=== PATIENT | female | born 1995 | race Caucasian/White ===

== ENCOUNTER 2022-01-07 19:27 | Emergency (ER) | payer OTHER ==
[2022-01-07 20:13] LABS: Bilirubin Neg (Negative); Blood, Urine Negative (Negative); Clarity Clear (Clear); Glucose, Urine (Dipstick) Normal (Negative); Ketone, Urine Negative (Negative); Leukocyte Negative (Negative); Nitrite Negative (Negative); Protein, Urine (Dipstick) Negative (Neg-Trace); Specific Gravity, Urine 1.015 (1.002-1.036); Urobilinogen Normal mg/dL (Less than 2); pH, Urine 6.5 (5.0-9.0)
== END 2022-01-07 21:46 | disposition home or self-care (01) ==
LOC: CSHERS 19:27
DX: O99.891 Other specified diseases and conditions complicating pregnancy (principal); R10.30 Lower abdominal pain, unspecified; O99.282 Endocrine, nutritional and metabolic diseases complicating pregnancy, second trimester; E03.9 Hypothyroidism, unspecified; Z3A.16 16 weeks gestation of pregnancy
CPT/HCPCS: 76856; 81003

== ENCOUNTER 2022-01-25 12:38 | Emergency (ER) | payer OTHER ==
[2022-01-25 13:37] LABS: Bilirubin Neg (Negative); Blood, Urine Negative (Negative); Clarity Clear (Clear); Glucose, Urine (Dipstick) Normal (Negative); Ketone, Urine Negative (Negative); Leukocyte Negative (Negative); Nitrite Negative (Negative); Protein, Urine (Dipstick) Negative (Neg-Trace); Urobilinogen Normal mg/dL (Less than 2); pH, Urine 6.5 (5.0-9.0)
[2022-01-25 14:45] LABS: #Eosinphils 0.2 10x3/uL (0.0-0.5); #Monocytes 0.6 10x3/uL (0.0-1.1); #Neutrophils 7.1 10x3/uL (1.5-8.4); %Basophils 0.4 % (0.0-2.0); %Eosinophils 1.7 % (0.0-6.0); %Lymphocytes 24.7 % (18.0-47.0); %Monocytes 5.3 % (0.0-10.0); %Neutrophils 67.4 % (40.0-75.0); Hemoglobin 12.4 g/dL (12.0-15.5); Mean Corpuscular HGB CONC 35.8 g/dL (32.0-36.0); Mean Corpuscular Hemoglobin 32.6 pg (27.0-33.0); Mean Corpuscular Volume 91.1 fl (81.6-98.3); Mean Platelet Volume 10.9 fl (7.4-10.4); Platelet Count 273 10x3/uL (150-450); RBC Distribution Width 13.2 % (11.5-14.5); White Blood Cell (WBC) Count 10.5 10x3/uL (3.5-10.5)
[2022-01-25 14:59] LABS: ALT (SGPT) 11 U/L (8-55); AST (SGOT) 13 U/L (5-34); Albumin 3.6 g/dL (3.5-5.0); Alkaline Phosphatase 52 U/L (40-110); Anion Gap 14 mmol/L (10-20); BUN (Urea Nitrogen) 5 mg/dL (7.0-18.7); Bilirubin, Total 0.3 mg/dL (0.2-1.2); Calc. Creatinine Clearance 0 mL/min (70-130); Calcium 9.1 mg/dL (7.8-10.44); Carbon Dioxide 20 mmol/L (22-29); Chloride 106 mmol/L (98-107); Globulin 3.3 g/dL (2.4-3.5); Glucose 83 mg/dL (70-105); Lipase 15 U/L (8-78); Protein, Total 6.9 g/dL (6.0-8.3); Sodium 136 mmol/L (136-145)
== END 2022-01-25 16:06 | disposition home or self-care (01) ==
LOC: CSHERS 12:38
DX: O16.2 Unspecified maternal hypertension, second trimester (principal); O99.282 Endocrine, nutritional and metabolic diseases complicating pregnancy, second trimester; E03.9 Hypothyroidism, unspecified; O99.512 Diseases of the respiratory system complicating pregnancy, second trimester; J45.909 Unspecified asthma, uncomplicated; Z79.899 Other long term (current) drug therapy; Z3A.19 19 weeks gestation of pregnancy
CPT/HCPCS: 80053; 81003; 83690; 85025; 93005

== ENCOUNTER 2022-04-08 12:44 | Emergency (ER) | payer OTHER ==
[2022-04-08] MEDS ORDERED: Ondansetron PF 4 MG/2 ML Vial ONE (13:37)
[2022-04-08] MEDS ORDERED: Acetaminophen 500 MG TAB ONE (13:38)
[2022-04-08 14:10] LABS: Bilirubin 1+ (Negative); Blood, Urine Negative (Negative); Clarity Clear (Clear); Glucose, Urine (Dipstick) Normal (Negative); Ketone, Urine 5 mg/dL (Negative); Leukocyte 25 (Negative); Nitrite Negative (Negative); Protein, Urine (Dipstick) 30 mg/dl (Neg-Trace)
[2022-04-08 14:14] LABS: Hemoglobin 12.2 g/dL (12.0-15.5); Mean Corpuscular Hemoglobin 31.5 pg (27.0-33.0); Mean Corpuscular Volume 88.9 fl (81.6-98.3); Red Blood Cell (RBC) Count 3.87 10x6/uL (3.90-5.03); White Blood Cell (WBC) Count 9.1 10x3/uL (3.5-10.5)
[2022-04-08 14:15] LABS: #Basophils 0.1 10x3/uL (0.0-0.2); #Monocytes 0.5 10x3/uL (0.0-1.1); #Neutrophils 7.7 10x3/uL (1.5-8.4); %Basophils 0.7 % (0.0-2.0); %Eosinophils 0.2 % (0.0-6.0); %Lymphocytes 8.4 % (18.0-47.0); %Monocytes 4.9 % (0.0-10.0); %Neutrophils 84.2 % (40.0-75.0); Mean Corpuscular HGB CONC 35.5 g/dL (32.0-36.0); Mean Platelet Volume 10.3 fl (7.4-10.4); Platelet Count 288 10x3/uL (150-450); RBC Distribution Width 12.8 % (11.5-14.5)
[2022-04-08 14:24] LABS: Bacteria/HPF 3+ HPF (None Seen); RBC/HPF 0-3 HPF (0-3); WBC/HPF 0-3 HPF (0-3)
[2022-04-08 14:41] LABS: ALT (SGPT) 12 U/L (8-55); AST (SGOT) 23 U/L (5-34); Albumin 3.5 g/dL (3.5-5.0); Alkaline Phosphatase 69 U/L (40-110); Anion Gap 14 mmol/L (10-20); BUN (Urea Nitrogen) 7 mg/dL (7.0-18.7); Bilirubin, Total 0.5 mg/dL (0.2-1.2); Calc. Creatinine Clearance 0 mL/min (70-130); Calcium 8.4 mg/dL (7.8-10.44); Carbon Dioxide 22 mmol/L (22-29); Chloride 102 mmol/L (98-107); Globulin 3.6 g/dL (2.4-3.5); Glucose 89 mg/dL (70-105); Lipase 8 U/L (8-78); Potassium 3.6 mmol/L (3.5-5.1); Protein, Total 7.1 g/dL (6.0-8.3); Sodium 134 mmol/L (136-145)
[2022-04-08] MEDS ORDERED: cefTRIAXone\\ROCEPHIN 1 GM VIAL ONE (14:55)
== END 2022-04-08 16:57 | disposition home or self-care (01) ==
LOC: CSHERS 12:44 → EDSTATUS 12:46 → CSHERS 16:57
DX: O99.613 Diseases of the digestive system complicating pregnancy, third trimester (principal); K52.9 Noninfective gastroenteritis and colitis, unspecified; O23.43 Unspecified infection of urinary tract in pregnancy, third trimester; O99.283 Endocrine, nutritional and metabolic diseases complicating pregnancy, third trimester; E86.0 Dehydration; E03.9 Hypothyroidism, unspecified; Z3A.29 29 weeks gestation of pregnancy
CPT/HCPCS: 80053; 81003; 81015; 83690; 85025; 96365; 96366; 96375; J0696; J2405

== ENCOUNTER 2022-05-14 20:51 | Day surgery (SDC) | payer OTHER ==
[2022-05-14 21:10] VITALS: BMI 41.0
[2022-05-14] MEDS ORDERED: hydrALAZINE 20 MG/ML VIAL SLOW IVP PRN (21:50)
== END 2022-05-14 23:05 | disposition home or self-care (01) ==
LOC: CSHLD/OP 20:51
PROVIDERS: ATTEND Emergency Medicine
DX: O99.891 Other specified diseases and conditions complicating pregnancy (principal); R10.10 Upper abdominal pain, unspecified; O26.23 Pregnancy care for patient with recurrent pregnancy loss, third trimester; O26.873 Cervical shortening, third trimester; Z3A.34 34 weeks gestation of pregnancy; Z91.02 Food additives allergy status
CPT/HCPCS: 87480; 87510; 87660

== ENCOUNTER 2022-06-11 20:38 | Inpatient (IN) | payer OTHER ==
[2022-06-11 20:59] VITALS: BMI 41.8
[2022-06-11] MEDS ORDERED: hydrALAZINE 20 MG/ML VIAL SLOW IVP PRN (22:10)
[2022-06-11] MEDS ORDERED: Acetaminophen 500 MG TAB PO SCH (22:30)
[2022-06-11] MEDS ORDERED: diphenhydrAMINE 50 MG/ML VIAL IVP SCH (22:30)
[2022-06-12] MEDS ORDERED: Butorphanol Tartrate 1 MG/ML VIAL ONE (00:58)
[2022-06-12] MEDS ORDERED: Ondansetron PF 4 MG/2 ML Vial IVP PRN ×2 (01:08→04:39)
[2022-06-12] MEDS ORDERED: Butorphanol Tartrate 1 MG/ML VIAL SLOW IVP PRN (01:08)
[2022-06-12] MEDS ORDERED: Lidocaine 1% (PF) 30 ML VIAL SC PRN (01:08)
[2022-06-12] MEDS ORDERED: Promethazine HCl 25 MG/ML VIAL IM PRN ×2 (01:08→04:39)
[2022-06-12] MEDS ORDERED: NS w/ Oxytocin 30 units 500 ML IV SCH (01:30)
[2022-06-12 01:32] LABS: Hemoglobin 11.3 g/dL (12.0-15.5); Mean Corpuscular HGB CONC 33.8 g/dL (32.0-36.0); Mean Corpuscular Hemoglobin 29.3 pg (27.0-33.0); Mean Corpuscular Volume 86.5 fl (81.6-98.3); Platelet Count 306 10x3/uL (150-450); RBC Distribution Width 13.6 % (11.5-14.5); Red Blood Cell (RBC) Count 3.86 10x6/uL (3.90-5.03); White Blood Cell (WBC) Count 16.5 10x3/uL (3.5-10.5)
[2022-06-12] MEDS ORDERED: Penicillin G Potassium 5 MILL.UNITS in Sodium Chloride 0.9% 100 ML IVPB SCH (02:00)
[2022-06-12 02:03] LABS: SARS-CoV-2 NAA Rapid Test Not Detected (NotDetected)
[2022-06-12 02:04] LABS: Hep B Surf Ag Non-Reactive S/CO (NonReactive); Syphilis Antibody Nonreactive (Nonreactive); Syphilis Antibody Index 0.06 S/CO (<1.00 Non-Reactive)
[2022-06-12 02:06] LABS: HBSAg Index 0.18 S/CO (0-0.99)
[2022-06-12] MEDS ORDERED: Fentanyl 2 mcg/Bup 0.1% Cadd 100 ML ONE ×2 (03:15→12:17)
[2022-06-12] MEDS ORDERED: Naloxone HCl 0.4 mg/ml Vial IVP PRN ×2 (04:39)
[2022-06-12] MEDS ORDERED: Acetaminophen 325 MG TAB PO PRN (04:39)
[2022-06-12] MEDS ORDERED: Lactated Ringer's 500 ML IV PRN (04:39)
[2022-06-12] MEDS ORDERED: diphenhydrAMINE 50 MG/ML VIAL IVP PRN (04:39)
[2022-06-12] MEDS ORDERED: Moisturizing Cream (Eucerin) 113 GM JAR TOP PRN (04:39)
[2022-06-12] MEDS ORDERED: ePHEDrine Sulfate 50 MG/10 ML VIAL SLOW IVP PRN (04:39)
[2022-06-12] MEDS ORDERED: Fentanyl 2 mcg/Bupivacaine 0.1% Cassette 100 ML EPIDURAL SCH (04:45)
[2022-06-12] MEDS ORDERED: Communication Order-Pharmacy FS SCH (04:45)
[2022-06-12] MEDS: Penicillin G 2.5 MILL.units 2.5 MILL.UNITS in Premix Bag 1 BAG IVPB SCH ×3 (06:21→14:12)
[2022-06-12] MEDS: Lactated Ringer's 1,000 ML IV SCH (08:00)
[2022-06-12] MEDS ORDERED: Bupivacaine 0.25% HCL 30 ML VIAL ONE (08:00)
[2022-06-12] MEDS ORDERED: Bupivacaine/Epinephrine 0.25% 30 ML VIAL ONE (08:00)
[2022-06-12] MEDS: Acyclovir 400 mg Tablet PO SCH ×3 (12:09→23:52)
[2022-06-12] MEDS ORDERED: Acetaminophen/Codeine 30-300mg Tablet PO PRN (17:56)
[2022-06-12] MEDS ORDERED: Preparation H Ointment 28 GM TUBE PR PRN (17:56)
[2022-06-12] MEDS ORDERED: Milk Of Magnesia 30 ML UDCUP PO PRN (17:56)
[2022-06-12] MEDS ORDERED: Bisacodyl 10 MG SUPP PR PRN (17:56)
[2022-06-12] MEDS: Ibuprofen 800 MG TAB PO SCH (19:16)
[2022-06-12] MEDS: HYDROcodone/Acetaminophen 5/325 mg Tablet PO PRN (22:40)
[2022-06-12] MEDS: Docusate 100 MG CAP PO SCH (22:41)
[2022-06-13] MEDS: Ibuprofen 800 MG TAB PO SCH ×3 (04:07→20:06)
[2022-06-13] MEDS: Lactated Ringer's 1,000 ML IV SCH (06:54)
[2022-06-13] MEDS: Ferrous Sulfate 325 MG TAB PO SCH (06:55)
[2022-06-13] MEDS: Penicillin G 2.5 MILL.units 2.5 MILL.UNITS in Premix Bag 1 BAG IVPB SCH (06:55)
[2022-06-13] MEDS: HYDROcodone/Acetaminophen 5/325 mg Tablet PO PRN ×2 (07:54→20:04)
[2022-06-13] MEDS: Acyclovir 400 mg Tablet PO SCH ×3 (07:55→20:05)
[2022-06-13] MEDS: Docusate 100 MG CAP PO SCH ×2 (07:55→20:04)
[2022-06-13] MEDS ORDERED: Boostrix 0.5 ML (Tdap) VIAL IM ONE (17:56)
[2022-06-14] MEDS: Ibuprofen 800 MG TAB PO SCH (03:52)
[2022-06-14] MEDS: Ferrous Sulfate 325 MG TAB PO SCH (07:05)
[2022-06-14 08:05] VITALS: BP 116/72; TEMP 98.5
[2022-06-14] MEDS: Docusate 100 MG CAP PO SCH (08:05)
[2022-06-14] MEDS: Acyclovir 400 mg Tablet PO SCH (08:05)
== END 2022-06-14 10:55 | disposition home or self-care (01) | DRG 806 ==
LOC: CSHLD/OP 20:38 → UNDOADMIN 23:48 → CSHLD 23:48 → CSHPP 06-12 19:50
PROVIDERS: ADMIT Student in an Organized Health Care Education/Training Program; ATTEND Student in an Organized Health Care Education/Training Program
PROC: 10E0XZZ Delivery of Products of Conception, External Approach (ICD-10-PCS; principal; 2022-06-12)
PROC: 0KQM0ZZ Repair Perineum Muscle, Open Approach (ICD-10-PCS; 2022-06-12)
PROC: 10907ZC Drainage of Amniotic Fluid, Therapeutic from Products of Conception, Via Natural or Artificial Opening (ICD-10-PCS; 2022-06-12)
PROC: 3E0334Z Introduction of Serum, Toxoid and Vaccine into Peripheral Vein, Percutaneous Approach (ICD-10-PCS; 2022-06-12)
DX: O99.824 Streptococcus B carrier state complicating childbirth (principal); E78.72 Smith-Lemli-Opitz syndrome; Z37.0 Single live birth; O98.32 Other infections with a predominantly sexual mode of transmission complicating childbirth; Z3A.38 38 weeks gestation of pregnancy; O26.893 Other specified pregnancy related conditions, third trimester; Z67.41 Type O blood, Rh negative; E66.9 Obesity, unspecified; O99.214 Obesity complicating childbirth; J45.909 Unspecified asthma, uncomplicated; O99.52 Diseases of the respiratory system complicating childbirth; A60.00 Herpesviral infection of urogenital system, unspecified; O70.1 Second degree perineal laceration during delivery; O69.81X0 Labor and delivery complicated by cord around neck, without compression, not applicable or unspecified; Z20.822 Contact with and (suspected) exposure to COVID-19; O99.284 Endocrine, nutritional and metabolic diseases complicating childbirth; E03.9 Hypothyroidism, unspecified; K21.9 Gastro-esophageal reflux disease without esophagitis; Z90.49 Acquired absence of other specified parts of digestive tract; Z79.899 Other long term (current) drug therapy; Z91.02 Food additives allergy status
CPT/HCPCS: 36415; 51702; 85027; 85461; 86780; 86850; 86900; 86901; 87340; 90384; 96372; 99285; J0595; J1200; J2001; J2405; J2540; J2590; J3490; J7120; S0020; U0002